=== PATIENT | female | born 1965 | race Caucasian/White ===

== ENCOUNTER → 2016-09-28 | Outpatient (CLI) | payer BC ==
[~2016-09-28] VITALS: Ht 160 cm; Wt 52.5 kg
[~2016-09-28] MED LIST: ALBU1AER INH; ALPR.25 PO; BENZOCAINE 20% ORAL SPR 60 ML CAN OROPHARYNG ONE; BUPR-86 PO; HYDR10SO PO; LIDOCAINE HCL 2% 100 MG/5 ML SYRINGE OTHER ONE; PROT40TA PO
[2016-09-28 07:30] VITALS: BP 105/69; PULSE 76; RESP 16; TEMP 97.4; O2SAT 96
== END ==
LOC: HEND 07:24
PROVIDERS: ATTEND Internal Medicine Gastroenterology
DX: R13.10 Dysphagia, unspecified (principal)
CPT/HCPCS: 91010

== ENCOUNTER 2017-07-28 13:54 | Emergency (ER) | payer BC ==
[~2017-07-28] VITALS: Ht 157.5 cm; Wt 57.8 kg
[~2017-07-28 13:54] MED LIST changes: -BENZOCAINE 20% ORAL SPR 60 ML CAN OROPHARYNG ONE; -LIDOCAINE HCL 2% 100 MG/5 ML SYRINGE OTHER ONE
[2017-07-28 13:55] VITALS: BP 139/74; PULSE 70; RESP 16; TEMP 97.7; O2SAT 97
[2017-07-28] MEDS ORDERED: HYDR-2374 PO (14:10)
--- NOTE | 2017-07-28 14:45 | RADRPT ---
EXAM DATE/TIME: 07/28/2017 14:31 [place] COMPARISON: No previous studies available for comparison. INDICATIONS : Right posterior rib pain just below the scapula after hearing "pop" while cleaning house. MEDICAL HISTORY : Chronic obstructive pulmonary disease. Gastroesophageal reflux disease. Ovarian cyst. SURGICAL HISTORY : Hysterectomy. Right hip ENCOUNTER: Initial ACUITY: 3 days PAIN SCORE: 10/10 LOCATION: Right posterior chest/rib FINDINGS: PA and lateral views of the chest demonstrate the lungs to be symmetrically aerated without evidence of mass, infiltrate or effusion. No evidence of pneumothorax. The cardiomediastinal contours are un remarkable. Osseous structures are intact. CONCLUSION: No acute cardiopulmonary disease. Ray Alaniz MD on July 28, 2017 at 14:43 Board Certified Radiologist. This report was verified electronically.
[2017-07-28] MEDS ORDERED: KETOROLAC TROMETHAMINE 60 MG/2 ML (IM) VIAL IM ONE (15:00)
[2017-07-28] MEDS ORDERED: ROBA500T PO (15:01)
[2017-07-28] MEDS ORDERED: LIDO1PAD52 TOPICAL (15:01)
--- NOTE | 2017-07-28 15:02 | PD ---
HPI Chief Complaint: Musculoskeletal Complaint Time Seen by Provider: 14:18 Travel History International Travel<30 days: Yes Contact w/Intl Traveler<30days: [place] Country Traveled to: [place] Traveled to known affect area: No History of Present Illness HPI 51-year-old female here for evaluation of right mid back pain 3 days. 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 Since then the area has become increasingly more painful. She reports the pain is worse with twisting, palpation of the posterior thorax, and deep inspiration. She does report mild shortness of breath but says this is only because a deep breath causes her pain. She reports that she used a lidocaine patch yesterday which improved symptoms. She denies fever or chills, chest pain, severe shortness of breath, diaphoresis, orthopnea, abdominal pain, lower extremity swelling. Symptoms severity is mild PFSH Past Medical History Blood Disorders: No Cancer: No Cardiovascular Problems: No Diabetes: No Diminished Hearing: No Endocrine: No GERD: Yes Genitourinary: No Hepatitis: No Hiatal Hernia: No Immune Disorder: No Musculoskeletal: No Neurologic: No Psychiatric: No Reproductive: No Respiratory: Yes (COPD) Immunizations Current: No Thyroid Disease: No Influenza Vaccination: No ?: Not Menopausal: Yes : 0 Para: 0 Ovarian Cysts: Yes Past Surgical History Abdominal Surgery: No AICD: No Arteriovenous Shunt: No Cardiac Surgery: No Ear Surgery: No Endocrine Surgery: No Eye Surgery: No Genitourinary Surgery: No Gynecologic Surgery: Yes (HYSTERECTOMY) Hysterectomy: Yes (2004) Insulin Pump: No Joint Replacement: No Oral Surgery: No Pacemaker: No Thoracic Surgery: No Social History Alcohol Use: Yes (SOCIALLY) Tobacco Use: Yes (1 PPD ) Substance Use: No Allergies-Medications (Allergen,Severity, Reaction): Coded Allergies: codeine (Unverified Adverse Reaction, Mild, NAUSEA, 07/28/17) Reported Meds & Prescriptions Reported Meds & Active Scripts Active Reported Hydrocodone-Acetaminophen 10-300 Tab 1 Tab PO Q6H PRN Review of Systems Except as stated in HPI: all other systems reviewed are Neg General / Constitutional: No: Fever Eyes: No: Visual changes HENT: No: Headaches Cardiovascular: No: Chest Pain or Discomfort Gastrointestinal: No: Abdominal Pain Genitourinary: No: Dysuria Physical Exam Narrative GENERAL: Well-nourished, well-developed patient female. Patient is well- appearing in no distress SKIN: Focused skin assessment warm/dry. HEAD: Normocephalic. EYES: No scleral icterus. No injection or drainage. NECK: Supple, trachea midline. No JVD or lymphadenopathy. CARDIOVASCULAR: Regular rate and rhythm without murmurs, gallops, or rubs. RESPIRATORY: Breath sounds equal bilaterally. No accessory muscle use. GASTROINTESTINAL: Abdomen soft, non-tender, nondistended. MUSCULOSKELETAL: No cyanosis, or edema. BACK: Tenderness to the right mid thorax. No rib crepitus. Without obvious deformity. No CVA tenderness. Data Data Last Documented VS Vital Signs Date Time Temp Pulse Resp B/P (MAP) Pulse Ox O2 Delivery O2 Flow Rate FiO2 07/28/17 13:55 97.7 70 16 139/74 (95) 97 Orders Orders Chest, Pa & Lat (07/28/17 ) Ketorolac Inj (Toradol Inj) (07/28/17 15:00) MDM Medical Decision Making Medical Screen Exam Complete: Yes Emergency Medical Condition: Yes Differential Diagnosis Rib fracture, thoracic strain, pneumothorax, pneumonia Narrative Course 51-year-old female here with right posterior mid back pain 3 days. Patient injured the area while vacuuming a client's house. Juan she has tenderness to the right posterior thoracic region. No rib crepitus. Chest x-ray showed no abnormalities. She is requesting refill of lidocaine patches. She is well- appearing and in no distress. This appears to be musculoskeletal in nature. She was advised to return if symptoms worsened. She agrees Diagnosis Primary Impression: Thoracic myofascial strain Qualified Codes: S29.019A - Strain of muscle and tendon of unspecified wall of thorax, initial encounter Referrals: Primary Care Physician Additional Instructions: Take [id number] Motrin 600-800 mg every 6-8 hours as needed for pain. Avoid heavy lifting or strenuous activity. Take a muscle relaxer as needed for muscle spasm. Follow-up with her doctor for recheck. Return to emergency department if he developed new or worsening symptoms Scripts Lidocaine Patch 12 HR (Lidocaine Patch 12 HR) 5 % Patch 1 PATCH TOPICAL DAILY for Pain Management, #1 BOX 0 Refills Remove patch after 12 hours Prov: Shelly Mcneal 07/28/17 Methocarbamol (Robaxin) 500 Mg Tab 500 MG PO TID for Muscle Spasm for 12 Days, TAB 0 Refills Prov: Shelly Mcneal 07/28/17 Disposition: 01 DISCHARGE HOME Condition: Stable Shelly Mcneal Jul 28, 2017 15:02
== END 2017-07-28 15:33 | disposition home or self-care (01) ==
LOC: PHEFT 13:54
DX: S29.019A Strain of muscle and tendon of unspecified wall of thorax, initial encounter (principal); X50.9XXA Other and unspecified overexertion or strenuous movements or postures, initial encounter; Y93.E3 Activity, vacuuming
CPT/HCPCS: 71020; 96372; 99284; J1885